=== PATIENT | male | born 1980 | race Caucasian/White ===

== ENCOUNTER 2016-07-20 15:25 | Emergency (ER) | payer MEDICAID ==
--- NOTE | 2016-07-20 16:17 | Emergency Department Record ---
History of Present Illness - General Chief complaint: Abscess Stated complaint: INFLAMATION OF LIP AND LT SIDE OF FACE/PAIN Time Seen by Provider: 07/20/16 16:12 Source: Patient Mode of Arrival: Ambulatory Limitations: No limitations - History of Present Illness Initial comments: 36 yo male presents with a left upper lip/ facial abscess for 2-3 days. He has been poking it and he did drain pus. The pain and swelling have persisted. He si also concerned about his medications. He was recently incarcerated and transitioning doctors. He is unsure how he will get his prescriptions filled. MD complaint: Abscess/boil Onset/Timin -: Days(s) Location: Face Severity: Moderate Treatments Prior to Arrival: Attempted to drain pus at home - Related Data Home Medications Medication Instructions Recorded Confirmed Last Taken Alprazolam [Alprazolam] 2 mg PO QID 01/01/14 01/01/14 01/01/14 Dextroamphetamine/Amphetamine 30 mg PO BID 01/01/14 01/01/14 07/20/16 [Amphetamine Salts 30 mg Tablet] Desvenlafaxine Succinate [Pristiq] 100 mg PO DAILY 07/20/16 07/20/16 07/20/16 Gabapentin [Neurontin] 400 mg PO TID 07/20/16 07/20/16 07/20/16 Gabapentin [Neurontin] 600 mg PO DAILY 07/20/16 07/20/16 07/19/16 Meperidine HCl [Demerol] 100 mg PO Q4HR 07/20/16 07/20/16 07/20/16 Promethazine HCl [Phenergan] 12.5 mg PO QHS 07/20/16 07/20/16 07/19/16 Previous Rx's Medication Instructions Recorded Alprazolam [Xanax] 2 mg PO BID #6 tablet 07/20/16 Cephalexin [Keflex] 500 mg PO QID #40 cap 07/20/16 Sulfamethoxazole/Trimethoprim 1 each PO BID #20 tablet 07/20/16 [Bactrim Ds Tablet] Allergies Allergy/AdvReac Type Severity Reaction Status Date / Time hydrocodone AdvReac NAUSEA Verified 07/20/16 15:47 Travel Screening - Travel/Exposure Within Last 30 Days Have you traveled within the last 30 days?: No - Travel/Exposure Within Last Year Have you traveled outside the [place] in the last year?: No - Additonal Travel Details Have you been exposed to anyone with a communicable illness?: No - Travel Symptoms Symptom Screening: None Review of Systems Constitutional: Denies: Chills, Fever, Malaise, Weakness Eyes: Denies: Eye discharge ENT: Denies: Congestion, Throat pain Respiratory: Denies: Cough Cardiovascular: Denies: Chest pain, Palpitations, Syncope Endocrine: Denies: Fatigue Gastrointestinal: Denies: Abdominal pain, Diarrhea, Nausea, Vomiting Musculoskeletal: Reports: Arthralgia, Back pain, Myalgia. Denies: Joint swelling Skin: Reports: Change in color, Lesions, Rash. Denies: Bruising Neurological: Reports: Headache Psychiatric: Denies: Anxiety Hematological/Lymphatic: Denies: Blood Clots, Easy bleeding, Easy bruising, Swollen glands Past Medical History - SOCIAL HISTORY Smoking Status: Heavy tobacco smoker (>10/day) Alcohol Use: Occassional Drug Use: None - RESPIRATORY Hx Respiratory Disorders: No - CARDIOVASCULAR Hx Cardio Disorders: No - NEURO Hx Neuro Disorders: No - GI Hx GI Disorders: Yes Hx Ulcer: Yes (hx) - Hx Genitourinary Disorders: No - ENDOCRINE Hx Endocrine Disorders: No - MUSCULOSKELETAL Hx Musculoskeletal Disorders: No - PSYCH Hx Psych Problems: Yes Hx Anxiety: Yes Comment:: ADHD - HEMATOLOGY/ONCOLOGY Hx Hematology/Oncology Disorders: No Family Medical History Any Significant Family History?: Yes Hx Anxiety: Grandparents Physical Exam - General General Appearance: Alert, Oriented x3, Cooperative, No acute distress Limitations: No limitations - Head Head exam: negative: Normal inspection Image of Face/Head: 1 - 1cm area of erythema, tenderness, and swelling, possibly fluctuant - Eye Eye exam: Normal appearance, PERRL - ENT ENT exam: Mucous membranes moist, Normal orophraynx, TM's normal bilaterally Ear exam: Normal external inspection Nasal Exam: Normal inspection. negative: Discharge, Sinus tenderness Mouth exam: negative: Normal external inspection Teeth exam: Normal inspection. negative: Dental caries Throat exam: Normal inspection. negative: Tonsillar erythema, Tonsillar exudate - Neck Neck exam: Normal inspection, Full ROM. negative: Tenderness - Respiratory Respiratory exam: Normal lung sounds bilaterally. negative: Respiratory distress - Cardiovascular Cardiovascular Exam: Regular rate, Normal rhythm, Normal heart sounds - Rectal Rectal exam: Deferred - exam: Deferred - Extremities Extremities exam: Normal inspection, Full ROM, Normal capillary refill. negative: Tenderness - Neurological Neurological exam: Alert, CN II-XII intact, Oriented X3 - Psychiatric Psychiatric exam: Normal affect, Normal mood - Skin Skin exam: Other (abscess) Course Vital Signs 07/20/16 15:57 Temperature 98 F Pulse Rate 93 H Respiratory 18 Rate Blood Pressure 117/66 Pulse Ox 97 - Reevaluation(s) Reevaluation #1: I discussed drainage of the area I discussed the risks and benefits IandD betadine prep Bupivicaine with lidocaine infra orbital block 11 blade 3mm incision Very scant pus predominantly blood - likely mostly drainaged by the patient. I explained the [facility] policy for not refilling controlled substances That will need to occur through his old or new PCP. 07/20/16 16:17 Reevaluation #2: i discussed at length the hospital policy of filling prescriptions of controlled substances I also understand he is on large doses of benzo's and narcotics and is at risk for withdrawal I reviewed his MAPS I will provide a VERY limited number of Xanax until Friday so he can call his new PCP 07/20/16 16:39 Disposition Disposition: Discharge Clinical Impression: Facial abscess Disposition: Home, Self-Care Condition: (1) Good Instructions: Abscess Incision and Drainage (ED) Additional Instructions: Clean the area 3 times daily Call to see the new doctor as soon as possible Return or seen care if worse Prescriptions: Sulfamethoxazole/Trimethoprim [Bactrim Ds Tablet] 1 each PO BID #20 tablet Cephalexin [Keflex] 500 mg PO QID #40 cap Alprazolam [Xanax] 2 mg PO BID #6 tablet Forms: Patient Portal Access Time of Disposition: 16:38
[2016-07-20] MEDS ORDERED: TMP/SMZ 160MG/800MG TAB PO ONE (16:20)
[2016-07-20] MEDS ORDERED: CEPHALEXIN 500 MG CAPSULE PO STA (16:20)
== END 2016-07-20 16:56 | disposition home or self-care (01) ==
LOC: ER 15:25
DX: L02.01 Cutaneous abscess of face (principal)
CPT/HCPCS: 10060 ×2; 99284 ×2; J3490